=== PATIENT | male | born 1960 | race Caucasian/White ===

== ENCOUNTER → 2023-05-29 14:54 | Outpatient (REF) | payer OTHER, SELFPAY | LOC: DHCBS MAIN 14:54 | PROVIDERS: ATTENDING PHYSICIAN Nuclear Medicine Nuclear Cardiology; FAMILY PHYSICIAN Family Medicine | DX: I08.0 Rheumatic disorders of both mitral and aortic valves (principal); R06.00 Dyspnea, unspecified | CPT/HCPCS: 93306 ==